=== PATIENT | female | born 1990 | race American Indian/Alaskan Native ===

== ENCOUNTER 2022-08-10 10:42 | Inpatient (IN) | payer OTHER ==
[~2022-08-10] VITALS: Ht 149.9 cm; Wt 68.0 kg
[~2022-08-10 10:42] MED LIST: PRENATAL TABLE1 EACH PO
[2022-08-14] MEDS ORDERED: ACETAMINOPHEN-1 EAC2 PO (07:39)
[2022-08-14] MEDS ORDERED: KETO10TA2 PO (07:40)
[2022-08-14] MEDS ORDERED: PEPCID AC20 MG PO (07:40)
== END 2022-08-14 08:21 | disposition home or self-care (01) | DRG 743 ==
LOC: ADM 08-11 10:00 → EDSTATUS 08-11 10:00 → O/R 08-13 06:35 → OB/GYN 08-13 10:00
PROVIDERS: ADMIT Obstetrics & Gynecology; ATTEND Obstetrics & Gynecology
PROC: 0UT7FZZ Resection of Bilateral Fallopian Tubes, Via Natural or Artificial Opening With Percutaneous Endoscopic Assistance (ICD-10-PCS; 2022-08-13)
PROC: 0TJB8ZZ Inspection of Bladder, Via Natural or Artificial Opening Endoscopic (ICD-10-PCS; 2022-08-13)
PROC: 0UT9FZZ Resection of Uterus, Via Natural or Artificial Opening With Percutaneous Endoscopic Assistance (ICD-10-PCS; principal; 2022-08-13 17:15)
DX: D25.1 Intramural leiomyoma of uterus (principal); D25.2 Subserosal leiomyoma of uterus; N72 Inflammatory disease of cervix uteri; Z20.822 Contact with and (suspected) exposure to COVID-19; N81.11 Cystocele, midline